=== PATIENT | male | born 1975 | race Two or more races ===

== ENCOUNTER 2016-06-02 19:34 | Inpatient (IN) | payer BC ==
[~2016-06-02] VITALS: Ht 170.2 cm; Wt 86.2 kg
[2016-06-02] MEDS ORDERED: ONDANSETRON PF 4 MG/2 ML VIAL. ONE (20:38)
[2016-06-02] MEDS ORDERED: ONDANSETRON PF 4 MG/2 ML VIAL. IV ONE (20:45)
[2016-06-02] MEDS ORDERED: IV NORMAL SALINE 1000ML BAG 1,000 ML IV SCH (21:03)
[2016-06-02 21:11] LABS: BASO % 0 % (0-3); EOS % 0 % (0-3); HEMATOCRIT 41.9 % (39.0-53.0); HEMOGLOBIN 13.7 g/dL (13.0-17.5); LYMPH # 1.9 x10^3/uL (1.0-4.8); LYMPH % 17 % (24-48); MEAN CORPUSCULAR HEMOGLOBIN 27 pg (25-35); MEAN CORPUSCULAR HGB CONC 33 g/dL (31-37); MEAN CORPUSCULAR VOLUME 82 fL (79-100); MONO % 6 % (0-9); NEUT % 76 % (31-73); PLATELET COUNT 225 x10^3/uL (140-400); RED BLOOD COUNT 5.09 x10^6/uL (4.30-5.70); WHITE BLOOD COUNT 11.2 x10^3/uL (4.0-11.0)
[2016-06-02 21:21] LABS: CALCIUM 9.4 mg/dL (8.5-10.1); CREATININE 1.2 mg/dL (0.7-1.3); GFR 66.4; POTASSIUM 3.9 mmol/L (3.5-5.1)
[2016-06-02 21:27] LABS: ALBUMIN 4.2 g/dL (3.4-5.0); ALBUMIN/GLOBULIN RATIO 1.1 (1.0-1.7); TOTAL BILIRUBIN 0.5 mg/dL (0.2-1.0)
[2016-06-02] MEDS: FENTANYL PF 100 MCG/2 ML VIAL. IV PRN ×2 (21:28→22:41)
[2016-06-02] MEDS ORDERED: CONTRAST GIVEN MC PRN (21:45)
[2016-06-02] MEDS ORDERED: IOHEXOL 300 MG/ML 75 ML VIAL IV ONE (22:00)
--- NOTE | 2016-06-02 22:14 | RAD ---
PROCEDURE Abdomen and pelvis CT with intravenous contrast HISTORY Left lower quadrant pain. TECHNIQUE Computed tomographic images of the abdomen pelvis were obtained following the administration of 75 cc Omnipaque 300 intravenous contrast. One or more of the following individualized dose reduction techniques were utilized for this examination: 1. Automated exposure control; 2. Adjustment of the mA and/or kV according to patient size; 3. Use of iterative reconstruction technique. COMPARISON None. FINDINGS Evaluation of the lower thorax demonstrates posterior dependent and basilar atelectasis. There is no infiltrate or effusion. There is a 3 mm slightly spiculated nodular opacity within the lateral left lower lobe with adjacent pulmonary vessel. No hepatic lesion is seen. The gallbladder, pancreas, spleen and adrenal glands are unremarkable. There is mild left hydronephrosis and hydroureter secondary to an obstructing 5 mm stone within the left ureteropelvic junction. No additional renal stone is seen. There is a 1.8 cm cyst within the medial upper midzone of the left kidney. The appendix is unremarkable. No abnormally thickened or dilated loop of bowel is seen. There is no pathologically enlarged lymph node. No suspicious osseous lesion is seen. IMPRESSION 1. Mild left obstructive uropathy secondary to a 5 mm stone at the left ureterovesical junction. 2. 1.3 cm left renal cyst. 3. 3 mm somewhat spiculated nodule within the left lower lobe with adjacent pulmonary vessel. Followup according to Fleischner society criteria. Electronically signed by: Shira Ramirez (Jun 02, 2016 22:13:26)
[2016-06-02 22:47] LABS: BILIRUBIN,URINE NEGATIVE (NEG); GLUCOSE,URINE NEGATIVE (NEG); NITRITE,URINE NEGATIVE (NEG); PROTEIN,URINE NEGATIVE (NEG-TRACE); UROBILINOGEN,URINE 0.2 mg/dL (0.2 mg/dL)
[2016-06-02 22:56] LABS: BACTERIA,URINE 0 /HPF (0-FEW); SQUAMOUS EPITHELIAL CELL,UR OCC /LPF
--- NOTE | 2016-06-02 23:25 | PHYS DOC ---
Past Medical History Past Medical History: Other Additional Past Medical Histor: KIDNEY STONE Past Surgical History: No Surgical History Alcohol Use: Occasionally Drug Use: None Adult General Chief Complaint Chief Complaint: ABDOMINAL PAIN HPI HPI Patient is a 40 year old male who presents with complaint of sudden onset left- sided abdominal pain and flank pain. Patient states his symptoms started earlier this afternoon and have been progressively getting worse. Patient denies any associated fevers. Patient states that he is having 10 out of 10 sharp pain along his left side. Patient denies previous history of similar symptoms. Patient denies any significant past medical history. Patient has not taken any medications to help with symptoms. Patient has had associated nausea and vomitingJoshua*54 Review of Systems Review of Systems Constitutional: Denies fever or chills [] Eyes: Denies change in visual acuity, redness, or eye pain [] HENT: Denies nasal congestion or sore throat [] Respiratory: Denies cough or shortness of breath [] Cardiovascular: Denies chest pain or edema [] GI: Abdominal pain, nausea, vomiting [] : Denies dysuria or hematuria [] Musculoskeletal: Denies back pain or joint pain [] Integument: Denies rash or skin lesions [] Neurologic: Denies headache, focal weakness or sensory changes [] Current Medications Current Medications Current Medications Medications (Trade) Dose Ordered Sig/[place] Start Time Stop Time Status Last Admin Dose Admin Fentanyl Citrate (Fentanyl 2ml Vial) 50 mcg PRN Q15MIN PRN 06/02/16 21:15 06/03/16 01:00 06/02/16 22:41 50 MCG Fentanyl Citrate 50 mcg 50 mcg PRN Q2HR PRN 06/02/16 23:30 06/03/16 23:29 Info (Do NOT chart on this entry -- for MONITORING) 1 each PRN DAILY PRN 06/02/16 21:45 06/04/16 21:44 Iohexol (Omnipaque 300 Mg/ml) 75 ml 1X ONCE 06/02/16 22:00 06/02/16 22:01 DC 06/02/16 21:56 75 ML Ondansetron HCl (Zofran) 4 mg PRN Q8HRS PRN 06/02/16 23:30 06/03/16 23:29 Sodium Chloride (Iv Sodium Chloride 0.9% 1000ml Bag) 1,000 ml @ 100 mls/hr Q10H 06/02/16 23:29 06/03/16 23:28 Allergies Allergies Allergies Coded Allergies Type Severity Reaction Last Updated Verified No Known Drug Allergies 06/02/16 No Physical Exam Physical Exam Constitutional: Alert, afebrile, appears in moderate discomfort. [] HENT: Normocephalic, atraumatic, bilateral external ears normal, oropharynx moist, no oral exudates, nose normal. [] Eyes: PERRLA, EOMI, conjunctiva normal, no discharge. [] Neck: Normal range of motion, no tenderness, supple, no stridor. [] Cardiovascular:Heart rate regular rhythm, no murmur [] Lungs & Thorax: Bilateral breath sounds clear to auscultation [] Abdomen: Bowel sounds normal, soft, left lower quadrant tenderness to palpation , no guarding or rebound tenderness, no masses, no pulsatile masses. [] Skin: Warm, dry, no erythema, no rash. [] Back: No tenderness, left CVA tenderness. [] Extremities: No tenderness, no cyanosis, no clubbing, ROM intact, no edema. [] Neurologic: Alert and oriented X 3, normal motor function, normal sensory function, no focal deficits noted. [] Current Patient Data Vital Signs Vital Signs Date Time Temp Pulse Resp B/P Pulse Ox O2 Delivery O2 Flow Rate FiO2 06/02/16 22:41 99 Room Air 06/02/16 22:32 62 20 148/79 06/02/16 20:11 97.8 97.8 Lab Values Laboratory Tests Test 06/02/16 20:00 06/02/16 22:34 White Blood Count 11.2x10^3/uL (4.0-11.0) H Red Blood Count 5.09x10^6/uL (4.30-5.70) Hemoglobin 13.7g/dL (13.0-17.5) Hematocrit 41.9% (39.0-53.0) Mean Corpuscular Volume 82fL (79-100) Mean Corpuscular Hemoglobin 27pg (25-35) Mean Corpuscular Hemoglobin Concent 33g/dL (31-37) Red Cell Distribution Width 13.0% (11.5-14.5) Platelet Count 225x10^3/uL (140-400) Neutrophils (%) (Auto) 76% (31-73) H Lymphocytes (%) (Auto) 17% (24-48) L Monocytes (%) (Auto) 6% (0-9) Eosinophils (%) (Auto) 0% (0-3) Basophils (%) (Auto) 0% (0-3) Neutrophils # (Auto) 8.5x10^3uL (1.8-7.7) H Lymphocytes # (Auto) 1.9x10^3/uL (1.0-4.8) Monocytes # (Auto) 0.7x10^3/uL (0.0-1.1) Eosinophils # (Auto) 0.0x10^3/uL (0.0-0.7) Basophils # (Auto) 0.0x10^3/uL (0.0-0.2) Sodium Level 140mmol/L (136-145) Potassium Level 3.9mmol/L (3.5-5.1) Chloride Level 103mmol/L (98-107) Carbon Dioxide Level 21mmol/L (21-32) Anion Gap 16 (6-14) H Blood Urea Nitrogen 16mg/dL (8-26) Creatinine 1.2mg/dL (0.7-1.3) Estimated GFR (Cockcroft-Gault) 66.4 BUN/Creatinine Ratio 13 (6-20) Glucose Level 166mg/dL (70-99) H Calcium Level 9.4mg/dL (8.5-10.1) Total Bilirubin 0.5mg/dL (0.2-1.0) Aspartate Amino Transferase (AST) 31U/L (15-37) Alanine Aminotransferase (ALT) 42U/L (16-63) Alkaline Phosphatase 84U/L (46-116) Total Protein 8.0g/dL (6.4-8.2) Albumin 4.2g/dL (3.4-5.0) Albumin/Globulin Ratio 1.1 (1.0-1.7) Lipase 81U/L (73-393) Urine Collection Type Unknown Urine Color Yellow Urine Clarity Clear Urine pH 8.0 Urine Specific [place]ting 1.025 Urine Protein Negativemg/dL (NEG-TRACE) Urine Glucose (UA) Negativemg/dL (NEG) Urine Ketones (Stick) 40mg/dL (NEG) Urine Blood Negative (NEG) Urine Nitrite Negative (NEG) Urine Bilirubin Negative (NEG) Urine Urobilinogen Dipstick 0.2mg/dL (0.2 mg/dL) Urine Leukocyte Esterase Negative (NEG) Urine RBC 1-2/HPF (0-2) Urine WBC 1-4/HPF (0-4) Urine Squamous Epithelial Cells Occ/LPF Urine Bacteria 0/HPF (0-FEW) Urine Mucus Slight/LPF Laboratory Tests 06/02/16 20:00 Laboratory Tests 06/02/16 20:00 EKG EKG Not performed [] Radiology/Procedures Radiology/Procedures [facility] [address] [place] [address] IMAGING REPORT Signed PATIENT: LUIS URBAN ACCOUNT: [id number] : 1975 LOCATION: ER AGE: 40 SEX: M EXAM STATUS: REG ER ORD. PHYSICIAN: LORELEI TARIQ MD REASON: left lower quadrant pain, vomiting PROCEDURE: ABD PELV W/ IV CONTRAST ONLY PROCEDURE Abdomen and pelvis CT with intravenous contrast HISTORY Left lower quadrant pain. TECHNIQUE Computed tomographic images of the abdomen pelvis were obtained following the administration of 75 cc Omnipaque 300 intravenous contrast. One or more of the following individualized dose reduction techniques were utilized for this examination: 1. Automated exposure control; 2. Adjustment of the mA and/or kV according to patient size; 3. Use of iterative reconstruction technique. COMPARISON None. FINDINGS Evaluation of the lower thorax demonstrates posterior dependent and basilar atelectasis. There is no infiltrate or effusion. There is a 3 mm slightly spiculated nodular opacity within the lateral left lower lobe with adjacent pulmonary vessel. No hepatic lesion is seen. The gallbladder, pancreas, spleen and adrenal glands are unremarkable. There is mild left hydronephrosis and hydroureter secondary to an obstructing 5 mm stone within the left ureteropelvic junction. No additional renal stone is seen. There is a 1.8 cm cyst within the medial upper midzone of the left kidney. The appendix is unremarkable. No abnormally thickened or dilated loop of bowel is seen. There is no pathologically enlarged lymph node. No suspicious osseous lesion is seen. IMPRESSION 1. Mild left obstructive uropathy secondary to a 5 mm stone at the left ureterovesical junction. 2. 1.3 cm left renal cyst. 3. 3 mm somewhat spiculated nodule within the left lower lobe with adjacent pulmonary vessel. Followup according to Fleischner society criteria. Electronically signed by: Shira Emmanuel (Jun 02, 2016 22:13:26) DICTATED and SIGNED BY: SHIRA EMMANUEL MD DATE: 06/02/16 2213 CC: LORELEI TARIQ MD; NO PCP ~ [] Course & Med Decision Making Course & Med Decision Making Pertinent Labs and Imaging studies reviewed. (See chart for details) Patient found have an obstructing left ureteral stone. After treatment with IV fentanyl, Zofran, and IV fluids, patient states that he does not feel better and is still having severe pain. The patient's ureteral stone measured 5 mm with evidence of obstruction. Due to continued pain symptoms, the patient will be admitted for further treatment. I spoke Dr. Kendall who accepted care patient in hospital. A consult was placed to Dr. Kaba of urology to follow with patient in hospital. Dragon Disclaimer Dragon Disclaimer This electronic medical record was generated, in whole or in part, using a voice recognition dictation system. Departure Departure Impression: Primary Impression: Ureteral stone Disposition: ADMITTED INPATIENT Admitting Physician: Rowena Kendall Condition: STABLE Referrals: NO PCP (PCP) LORELEI TARIQ MD Jun 02, 2016 23:24
[2016-06-02] MEDS ORDERED: FENTANYL PF 100 MCG/2 ML VIAL. IV PRN (23:30)
[2016-06-02] MEDS ORDERED: ONDANSETRON PF 4 MG/2 ML VIAL. IV PRN (23:30)
[2016-06-03] MEDS: IV NORMAL SALINE 1000ML BAG 1,000 ML IV SCH ×2 (00:50→10:30)
[2016-06-03 02:04] VITALS: BP 138/85
[2016-06-03 03:51] LABS: BASO % 0 % (0-3); EOS % 0 % (0-3); HEMATOCRIT 38.8 % (39.0-53.0); HEMOGLOBIN 13.1 g/dL (13.0-17.5); LYMPH # 2.2 x10^3/uL (1.0-4.8); LYMPH % 25 % (24-48); MEAN CORPUSCULAR HEMOGLOBIN 27 pg (25-35); MEAN CORPUSCULAR HGB CONC 34 g/dL (31-37); MEAN CORPUSCULAR VOLUME 82 fL (79-100); MONO % 8 % (0-9); NEUT % 67 % (31-73); PLATELET COUNT 199 x10^3/uL (140-400); RED BLOOD COUNT 4.76 x10^6/uL (4.30-5.70); RED CELL DISTRIBUTION WIDTH 13.4 % (11.5-14.5); WHITE BLOOD COUNT 8.8 x10^3/uL (4.0-11.0)
[2016-06-03 05:33] LABS: CALCIUM 8.9 mg/dL (8.5-10.1); CREATININE 1.1 mg/dL (0.7-1.3); GFR 73.4; POTASSIUM 3.9 mmol/L (3.5-5.1)
[2016-06-03 07:00] VITALS: BP 105/64
[2016-06-03 11:00] VITALS: BP 119/70
--- NOTE | 2016-06-03 13:27 | PDOC ---
Provider Note Provider Note UROLOGY: c/c left flank pain, 5mm calculus UVJ, low grade obstruction no pain since last night Plan: Home to see if he can pass spontaneously Rx Flomax, Hydrocodone 5 Call me Monday, if stone has not passed, will put him on Surgery schedule next week. Thanks, DAISY AGUILERA DO Jun 03, 2016 13:27
[2016-06-03 15:00] VITALS: BP 111/64
--- NOTE | 2016-06-03 15:17 | DISCH ---
DISCHARGE INSTRUCTIONS Condition on Discharge Condition on Discharge: Stable Activity After Discharge Activity Instructions for Disc: No restrictions Diet after Discharge Diet after Discharge: Regular Contacting the DR. after DC Call your doctor for: If your condition worsens Follow-Up Follow up with: Dr Kaba (urology) for night time voiding issues DAT ACOSTA MD Jun 03, 2016 15:17
--- NOTE | 2016-06-04 01:00 | SSS ---
ADMIT DATE: 06/03/2016 CHIEF COMPLAINT: Nephrolithiasis. HISTORY OF PRESENT ILLNESS: The patient is a 40-year-old gentleman with previous history of kidney stones, who presented to the Emergency Room with flank and lower quadrant pain that has started at about 4 o'clock yesterday afternoon. Pain became worse and worse and he decided to come to the Emergency Room at 2:00 a.m. in the morning. Pain was excruciating then. He was palliated with IV narcotics and admitted for further management and care. He has been seen by Dr. Kaba from Urology today. Currently, the patient is actually pain-free, has not needed any pain medication for several hours. Feels well otherwise, denies any ongoing hematuria. PAST MEDICAL HISTORY: History of renal stones. FAMILY HISTORY: Negative for issues. SOCIAL HISTORY: Lives with his and son. Works in construction. No toxic habits. ALLERGIES: No known drug allergies. MEDICATIONS: No home medications. REVIEW OF SYSTEMS: Positive as per HPI. Currently, symptoms are actually resolved. Rest of organ system review is negative. PHYSICAL EXAMINATION: VITAL SIGNS: From today show a blood pressure of 119/70, heart rate at 86, respiratory rate at 18. He is afebrile. GENERAL: This is a well-nourished, well developed 40-year-old gentleman, alert and oriented, in no acute distress. HEENT: Shows no scleral icterus. NECK: Supple. LUNGS: Clear to auscultation bilaterally. CARDIOVASCULAR: Regular rate and rhythm without any murmurs. ABDOMEN: Has positive bowel sounds, soft, nontender. EXTREMITIES: Show no edema, no clubbing, no cyanosis. SKIN: Warm, soft and dry without any rash. LABORATORY DATA: CBC from this morning shows a WBC of 8.8, hemoglobin of 13, platelets at 199. Chemistries with a BUN and creatinine of 13 and 1.1, normal electrolytes. Urine with 1-2 rbc's and 1-4 wbc's. IMAGING STUDIES: CT of the abdomen and pelvis showed a mild left obstructive uropathy secondary to a 5-mm stone at the left ureterovesical junction. There is a 1.3-cm left renal cyst and a 3-mm nodule in the left lower lobe. ASSESSMENT AND PLAN: The patient is a 40-year-old gentleman with kidney stone and mild obstructive uropathy. By symptoms, it appears that he actually has passed a stone now. Discussed mechanism and origin of his stones. He has been seen by Dr. Kaba with whom he will follow up in 1-2 weeks. He has a tiny nodule in his left lower lobe. He is a nonsmoker, and therefore, should follow up with a CT in 1 year. DISCHARGE DIAGNOSES: Obstructive uropathy and nephrolithiasis. DISCHARGE DISPOSITION: To home. DISCHARGE CONDITION: Improved. DISCHARGE MEDICATIONS: Please refer to MAR. DISCHARGE INSTRUCTIONS: The patient will follow up with Dr. Kaba in 1-2 weeks. DAT ACOSTA MD DR: UR/nts JOB#: [id number] / [id number]
--- NOTE | 2016-06-04 04:59 | CONS ---
DATE OF CONSULTATION: 06/03/2016 CHIEF COMPLAINT: Acute left flank pain, distal left ureteral calculus. HISTORY OF PRESENT ILLNESS: This is a 40-year-old male who presented to the Emergency Room with acute left flank pain. He states that he had similar symptoms in 04/2016, but then the pain resolved. He feels like he has probably had this stone for some time. The patient was admitted to the hospital for IV hydration and analgesia. Today, the patient states that he is pain-free. ALLERGIES: No known drug allergies. PAST MEDICAL HISTORY: The patient denies any chronic illnesses. PAST SURGICAL HISTORY: He has had no previous major abdominal surgery. REVIEW OF SYSTEMS: A 14-point review of systems performed, most significant is his HPI. PHYSICAL EXAMINATION: GENERAL DESCRIPTION: A 40-year-old male. He is alert and oriented, sitting up in bed. He denies any pain or discomfort. ABDOMEN: Soft and nontender. Negative for guarding or rigidity. He denies flank pain to palpation bilaterally. No palpable abdominal masses. No suprapubic tenderness. RECTAL: Not performed. MUSCULOSKELETAL: Good range of motion. Negative for cyanosis or edema. LABORATORY STUDIES: The patient's white blood cell count is 8.8, hemoglobin of 13.1, hematocrit of 38.8. Electrolytes are normal. His BUN is 13, creatinine is 1.1, calcium is normal at 8.9. Urinalysis: Barb in color with 1-2 red blood cells per high-power field, 1-4 white blood cells, negative for bacteria. X-RAY STUDIES: A CT scan with IV contrast was reviewed. The patient was found to have a 5-mm calculus at the left ureterovesical junction, stone measuring 5 mm. Mild hydronephrosis. IMPRESSION: 1. Acute left ureteral colic -- resolved. 2. Distal left ureteral calculus (5 mm at ureterovesical junction). PLAN: I discussed these findings with the patient. He is pain-free at this time. I plan to let him go home. He is going to push the fluids, 8-10 glasses of water a day. He is going to have a prescription for Flomax and pain medicine to see if he can pass the stone spontaneously over the weekend. If not, he is going to call me next week and we will schedule him outpatient for ureteroscopy and stone extraction. He appears to understand and is agreeable. DAISY AGUILERA DO DR: Oscar JOB#: [id number] / [id number]
== END 2016-06-03 16:00 | disposition home or self-care (01) | DRG 700 ==
LOC: ER 19:34 → ED HOLD 23:17 → 5 NORTH 06-03 01:15
PROVIDERS: ADMIT Internal Medicine; ATTEND Internal Medicine
DX: N13.9 Obstructive and reflux uropathy, unspecified (principal); N20.2 Calculus of kidney with calculus of ureter; N28.1 Cyst of kidney, acquired; Z87.442 Personal history of urinary calculi; Z79.899 Other long term (current) drug therapy
CPT/HCPCS: 36415; 74177; 80048; 80053; 81001; 83690; 85027; J2405; J3010; J7030; Q9967; 99285-25